=== PATIENT | female | born 1955 | race Hispanic/Latino ===

== ENCOUNTER 2022-08-11 11:09 | Outpatient (CLI) | payer OTHER | END 2022-08-11 11:10 | disposition home or self-care (01) | LOC: CSHRAD 11:09 | PROVIDERS: ATTEND Physician Assistant | DX: R13.11 Dysphagia, oral phase (principal); R13.12 Dysphagia, oropharyngeal phase; K21.9 Gastro-esophageal reflux disease without esophagitis | CPT/HCPCS: 74230 ==